=== PATIENT | male | born 1985 | race American Indian/Alaskan Native ===

== ENCOUNTER 2017-09-14 21:22 | Emergency (ER) | payer OTHER ==
[2017-09-14 22:05] VITALS: BP 132/81
[2017-09-15] MEDS ORDERED: MOTRIN PO ONE (00:09)
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
== END 2017-09-15 00:35 | disposition home or self-care (01) ==
LOC: ED 21:22
DX: S43.402A Unspecified sprain of left shoulder joint, initial encounter (principal); M54.5 Low back pain; F17.200 Nicotine dependence, unspecified, uncomplicated; Z88.0 Allergy status to penicillin; V89.0XXA Person injured in unspecified motor-vehicle accident, nontraffic, initial encounter; Y93.89 Activity, other specified; Y99.8 Other external cause status; Y92.481 Parking lot as the place of occurrence of the external cause
CPT/HCPCS: 99283

== ENCOUNTER 2018-02-02 08:32 | Emergency (ER) | payer OTHER ==
[2018-02-02 09:11] VITALS: BP 129/71
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
== END 2018-02-02 11:20 | disposition home or self-care (01) ==
LOC: ED 08:32
DX: S13.9XXA Sprain of joints and ligaments of unspecified parts of neck, initial encounter (principal); M54.9 Dorsalgia, unspecified; F17.200 Nicotine dependence, unspecified, uncomplicated; Z88.0 Allergy status to penicillin; V89.2XXA Person injured in unspecified motor-vehicle accident, traffic, initial encounter; Y93.89 Activity, other specified; Y92.89 Other specified places as the place of occurrence of the external cause; Y99.8 Other external cause status
CPT/HCPCS: 99282

== ENCOUNTER 2018-02-04 13:34 | Emergency (ER) | payer OTHER ==
[2018-02-04 13:57] VITALS: BP 137/77
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
== END 2018-02-04 16:43 | disposition home or self-care (01) ==
LOC: ED 13:34
DX: M54.5 Low back pain (principal); M54.2 Cervicalgia; F17.200 Nicotine dependence, unspecified, uncomplicated; Z76.0 Encounter for issue of repeat prescription; Z88.0 Allergy status to penicillin
CPT/HCPCS: 99282

== ENCOUNTER 2019-03-08 17:13 | Emergency (ER) | payer OTHER ==
[2019-03-08] MEDS ORDERED: BOOSTRIX IM ONE ×2 (17:56→22:30)
--- NOTE | 2019-03-08 17:57 | Emergency Department Report ---
Chief Complaint: Puncture Wound Stated Complaint: L SIDE PAIN Time Seen by Provider: 03/08/19 17:53 - HPI History of Present Illness: This is a 33 y.o. M. that presents to the ER with laceration to left flank. Patient walked by a hose at work that had a nail sticking out and caught his shirt. Current smoker No significant PMH - Exam Vital Signs: Vital Signs 03/08/19 17:53 Temperature 98.7 F Pulse Rate 62 Respiratory 16 Rate Blood Pressure 146/85 [Right] O2 Sat by Pulse 100 Oximetry MSE screening note: Focused history and physical exam performed. Due to findings the following was ordered: Boostrix ACC for further evaluation. ED Disposition for MSE Condition: Stable
[2019-03-08] MEDS ORDERED: ULTRAM PO ONE (22:12)
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
[2019-03-08 22:39] VITALS: BP 134/77
== END 2019-03-08 22:38 | disposition home or self-care (01) ==
LOC: ED 17:13
DX: S20.412A Abrasion of left back wall of thorax, initial encounter (principal); F17.200 Nicotine dependence, unspecified, uncomplicated; Z88.0 Allergy status to penicillin; W22.8XXA Striking against or struck by other objects, initial encounter; Y93.89 Activity, other specified; Y92.89 Other specified places as the place of occurrence of the external cause; Y99.8 Other external cause status
CPT/HCPCS: 90471; 90715

== ENCOUNTER 2019-06-22 01:11 | Emergency (ER) | payer SELFPAY ==
[2019-06-22] MEDS ORDERED: LIDOCAINE VISCOUS 2% MM NR (03:15)
[2019-06-22] MEDS ORDERED: BACTRIM DS PO ONE (03:30)
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
[2019-06-22 03:48] VITALS: BP 120/75
== END 2019-06-22 03:47 | disposition home or self-care (01) ==
LOC: ED 01:11
DX: K04.7 Periapical abscess without sinus (principal); F17.200 Nicotine dependence, unspecified, uncomplicated; Z88.0 Allergy status to penicillin; Z79.1 Long term (current) use of non-steroidal anti-inflammatories (NSAID); Z79.899 Other long term (current) drug therapy